=== PATIENT | female | born 1945 | race Caucasian/White ===

== ENCOUNTER 2019-01-11 09:35 | Outpatient (CLI) | payer MEDICARE, OTHER ==
[2019-01-11] MEDS ORDERED: ASPI-496 PO (10:15)
[2019-01-11] MEDS ORDERED: LEVO100T PO (10:15)
[2019-01-11] MEDS ORDERED: POTA10TA17 PO (10:15)
== END 2019-01-11 23:59 | disposition home or self-care (01) ==
LOC: STAR 09:35
PROVIDERS: ATTEND Internal Medicine Gastroenterology
DX: Z01.818 Encounter for other preprocedural examination (principal); D13.1 Benign neoplasm of stomach; Z88.5 Allergy status to narcotic agent
CPT/HCPCS: 93005

== ENCOUNTER 2019-01-17 06:28 | Day surgery (SDC) | payer MEDICARE, OTHER ==
[~2019-01-17] VITALS: Ht 165.1 cm; Wt 94.4 kg
[~2019-01-17 06:28] MED LIST: ASPI-496 PO; LEVO100T PO; POTA10TA17 PO
[2019-01-17 07:12] VITALS: BP 137/83
[2019-01-17] MEDS ORDERED: LACTATED RINGERS 1,000 ML IV SCH (07:15)
[2019-01-17] MEDS ORDERED: PROPOFOL 50 ML ONE (08:20)
[2019-01-17] MEDS ORDERED: KETAMINE 10 MG/ML, 20ML ONE (08:23)
[2019-01-17] MEDS ORDERED: ONDANSETRON 2MG/ML, 2ML ONE (08:30)
[2019-01-17] MEDS ORDERED: FENTANYL PF 100 MCG/2ML ONE (09:02)
[2019-01-17] MEDS ORDERED: OXYcodone 5 MG/5 ML ORAL.SOL UDC PO PRN (09:30)
[2019-01-17] MEDS ORDERED: ACETAMINOPHEN 325 MG TABLET PO PRN (09:30)
[2019-01-17] MEDS ORDERED: hydrALAzine 20 MG/ML, 1ML IV PRN (09:30)
[2019-01-17] MEDS ORDERED: HALOPERIDOL 5 MG/ML IV PRN (09:30)
[2019-01-17] MEDS ORDERED: MEPERIDINE/PF 25MG/0.5ML IVPush PRN (09:30)
[2019-01-17] MEDS ORDERED: HYDROmorphone 2 MG/ML, 1ML IVPush PRN (09:30)
[2019-01-17] MEDS ORDERED: FENTANYL PF 100 MCG/2ML IV PRN (09:30)
[2019-01-17] MEDS ORDERED: PROMETHAZINE 25 MG/ML, 1ML IV PRN (09:30)
== END 2019-01-17 10:35 | disposition home or self-care (01) ==
LOC: OUT 06:28
PROVIDERS: ATTEND Internal Medicine Gastroenterology
DX: C16.9 Malignant neoplasm of stomach, unspecified (principal); K29.80 Duodenitis without bleeding; K86.2 Cyst of pancreas; E03.9 Hypothyroidism, unspecified; E66.9 Obesity, unspecified; Z68.33 Body mass index [BMI] 33.0-33.9, adult; Z79.890 Hormone replacement therapy; Z79.899 Other long term (current) drug therapy; Z98.51 Tubal ligation status; Z87.442 Personal history of urinary calculi; Z88.8 Allergy status to other drugs, medicaments and biological substances; Z96.612 Presence of left artificial shoulder joint; Z90.49 Acquired absence of other specified parts of digestive tract; Z98.890 Other specified postprocedural states
CPT/HCPCS: 43239; 43242; 82150; 82378; 88172; 88173; 88305; 88341; 88342; J2405; J2704; J3010; J7120

== ENCOUNTER 2019-03-18 10:50 | Outpatient (CLI) | payer MEDICARE, OTHER | END 2019-03-18 23:59 | disposition home or self-care (01) | LOC: STAR 10:50 | PROVIDERS: ATTEND Thoracic Surgery (Cardiothoracic Vascular Surgery) | DX: Z01.818 Encounter for other preprocedural examination (principal); D49.0 Neoplasm of unspecified behavior of digestive system; R94.31 Abnormal electrocardiogram [ECG] [EKG] | CPT/HCPCS: 93005 ==